=== PATIENT | female | born 1985 | race Two or more races ===

== ENCOUNTER 2024-09-22 08:30 | Inpatient (IN) | payer OTHER ==
[~2024-09-22] VITALS: Ht 157.5 cm; Wt 3.2 kg
[2024-09-22 10:11] LABS: HEMATOCRIT 35.6 % (36.0-45.00); HEMOGLOBIN 11.6 g/dL (12.0-15.00); MEAN CORPUSCULAR HGB CONC 32.5 g/dl (32.0-36.0); PLATELET COUNT 327 K/uL (150-450); RED BLOOD COUNT 4.29 M/uL (4.00-6.00); RED CELL DISTRIBUTION WIDTH 15.1 % (11.5-14.5)
[2024-09-22 10:32] LABS: INR 0.99; PARTIAL THROMBOPLASTIN TIME 24.3 SECONDS (22.0-34.0); PROTHROMBIN TIME 10.8 SECONDS (9.0-11.5)
[2024-09-22 10:42] LABS: ALBUMIN 2.7 gm/dL (3.4-5.0); BILIRUBIN TOTAL 0.4 mg/dL (0.3-1.2); CALCIUM 9.6 mg/dL (8.5-10.1); CREATININE SERUM 0.51 mg/dL (0.55-1.02); GFR 134.96; GLOBULINA 4.2 G/DL (2.4-3.5); POTASSIUM 4.13 mEq/L (3.5-5.1); TOTAL PROTEIN 6.9 gm/dL (6.4-8.2)
[2024-09-28] MEDS ORDERED: PRENATAL + DHA1 EAC1 PO (07:05)
[2024-09-28 07:06] VITALS: BP 118/71
[2024-09-28] MEDS ORDERED: ERYTHROMYCIN BASE OPHT 1GM EACH TUBE OP ONE (10:11)
[2024-09-28] MEDS ORDERED: OXYTOCIN 10 UNITS/ML VIAL ONE ×2 (10:12→13:54)
[2024-09-28] MEDS ORDERED: CEFAZOLIN SODIUM 1,000 MG VIAL ONE (10:12)
[2024-09-28] MEDS ORDERED: CITRIC ACID/SODIUM CITRATE 30 ML BLIST.PACK PO ONE (10:12)
[2024-09-28] MEDS ORDERED: MORPHINE SULFATE 4 MG/ML CARTRIDGE IV PRN (12:00)
[2024-09-28] MEDS ORDERED: ACETAMINOPHEN 325 MG TABLET PO SCH (12:00)
[2024-09-28] MEDS ORDERED: OXYTOCIN 1,000 ML IV SCH (12:15)
[2024-09-28 14:26] VITALS: BP 116/74
[2024-09-28 16:00] VITALS: BP 113/70
[2024-09-29 04:09] VITALS: BP 104/61
[2024-09-29] MEDS ORDERED: MORPHINE SULFATE 4 MG/ML CARTRIDGE IV PRN (08:45)
[2024-09-29] MEDS ORDERED: GABAPENTIN 300 MG CAPSULE PO SCH (09:00)
[2024-09-29 09:23] VITALS: BP 114/73
[2024-09-29 12:30] LABS: HEMATOCRIT 35.2 % (36.0-45.00); HEMOGLOBIN 11.4 g/dL (12.0-15.00); MEAN CELL VOLUME 82.8 fL (80.00-100.00); MEAN CORPUSCULAR HEMOGLOBIN 26.9 pg (27.00-32.0); MEAN CORPUSCULAR HGB CONC 32.5 g/dl (32.0-36.0); PLATELET COUNT 310 K/uL (150-450); RED BLOOD COUNT 4.25 M/uL (4.00-6.00); RED CELL DISTRIBUTION WIDTH 15.7 % (11.5-14.5)
[2024-09-29 13:30] VITALS: BP 120/77
[2024-09-29 16:46] VITALS: BP 133/84
[2024-09-29] MEDS ORDERED: SIMETHICONE 125 MG CAPSULE PO SCH (21:00)
[2024-09-30] VITALS: BP 105/64
[2024-09-30 08:00] VITALS: BP 115/75
== END 2024-09-30 13:28 | disposition home or self-care (01) | DRG 785 ==
LOC: OB/GYN 09-28 06:54 → O/R 09-28 06:54 → LDR 09-28 08:30 → OB/GYN 09-28 11:56 → LDR 09-28 13:30 → OB/GYN 09-30 13:28
PROVIDERS: Obstetrics & Gynecology; ADMIT Obstetrics & Gynecology Maternal & Fetal Medicine; ATTEND Obstetrics & Gynecology Maternal & Fetal Medicine
PROC: 0UB70ZZ Excision of Bilateral Fallopian Tubes, Open Approach (ICD-10-PCS; 2024-09-28)
PROC: 4A1HXCZ Monitoring of Products of Conception, Cardiac Rate, External Approach (ICD-10-PCS; 2024-09-28)
PROC: 10D00Z1 Extraction of Products of Conception, Low, Open Approach (ICD-10-PCS; principal; 2024-09-28 13:30)
DX: O34.211 Maternal care for low transverse scar from previous cesarean delivery (principal); Z30.2 Encounter for sterilization; Z37.0 Single live birth; Z3A.40 40 weeks gestation of pregnancy

== ENCOUNTER 2024-09-22 12:26 | Outpatient (CLI) | payer OTHER | END 2024-09-22 12:57 | disposition home or self-care (01) | LOC: NST 12:26 | PROVIDERS: ATTEND Obstetrics & Gynecology | DX: Z34.83 Encounter for supervision of other normal pregnancy, third trimester (principal) ==